=== PATIENT | female | born 1985 | race Caucasian/White ===

== ENCOUNTER 2017-03-29 18:14 | Emergency (ER) | payer BC ==
[~2017-03-29] VITALS: Ht 162.6 cm; Wt 76.4 kg
[2017-03-29] MEDS ORDERED: TRAM50TA2 PO (18:32)
[2017-03-29] MEDS ORDERED: IBUP-1542 PO (18:32)
[2017-03-29] MEDS ORDERED: CETI10CA PO (18:32)
[2017-03-29] MEDS ORDERED: AMOX500C2 PO (18:32)
[2017-03-29 18:35] VITALS: Ht 162.6 cm; Wt 76.4 kg
[2017-03-29 18:39] VITALS: BP 119/68; PULSE 90; RESP 18; TEMP 98
--- NOTE | 2017-03-29 18:46 | ERD ---
ER Documentation Chief Complaint Chief Complaint Jaw pain for 1 month HPI 31-year-old female sent to emergency department for complaints of right jaw pain for 1 month now, worse after eating, throbbing pain, 6/10 scale, patient also is complaining of right ear pain throbbing pain 4/10 scale, not better or worse with anything. Patient did not take any medications to help with symptoms. Patient denies any ear discharge. Patient denies any problems with hearing. Denies any trauma. ROS All systems reviewed and are negative except as per history of present illness. Medications Home Meds Active Scripts Cetirizine Hcl* (Zyrtec*) 10 Mg Capsule, 10 MG PO DAILY, #30 TAB.CHEW Prov:LANNY CERDA NP 03/29/17 Amoxicillin* (Amoxicillin*) 500 Mg Cap, 500 MG PO TID for 10 Days, CAP Prov:LANNY CERDA NP 03/29/17 Tramadol HCl (Tramadol HCl) 50 Mg Tablet, 50 MG PO Q6 for SEVERE PAIN LEVEL 7-10 , #20 TAB Prov:LANNY CERDA NP 03/29/17 Ibuprofen* (Motrin*) 600 Mg Tab, 600 MG PO Q6H Y for PAIN AND OR ELEVATED TEMP, #30 TAB Prov:LANNY CERDA NP 03/29/17 Allergies Allergies: Coded Allergies: No Known Drug Allergy (Verified Allergy, Unknown, 04/16/09) PMhx/Soc Medical and Surgical Hx: pt denies Medical Hx History of Surgery: Yes (C SECTION X'S 2) Anesthesia Reaction: No Hx Alcohol Use: No Hx Substance Use: No Hx Tobacco Use: No Smoking Status: Never smoker FmHx Family History: No coronary disease, No diabetes, No other Physical Exam Physical Exam GENERAL: The patient is well developed and appropriate for usual state of health, in no apparent distress. HEENT: Atraumatic. Ears: Right ear tympanic membrane noted to be erythematous and bulging. Normal left tympanic membrane, no erythema or bulging. No ear canal swelling. No ear discharge. Nose: normal nasal turbinates, no erythema or swelling. Normal nasal discharge. Throat: oropharynx clear. No tonsillar swelling or tonsillar exudates. No lymphadenopathy. CHEST: Clear to auscultation bilaterally. There are no rales, wheezes or rhonchi. Tenderness on palpation of the right temporomandibular joint. HEART: Regular rate and rhythm. No murmurs, clicks, rubs or gallops. No S3 or S4. ABDOMEN: Soft, nontender and nondistended. Good bowel sounds. No rebound or guarding. No gross peritonitis. No gross organomegaly or masses. No Howe sign or McBurney point tenderness. BACK: No midline or flank tenderness. EXTREMITIES: Equal pulses bilaterally. There is no peripheral clubbing, cyanosis or edema. No focal swelling or erythema. Full range of motion. Grossly neurovascularly intact. NEURO: Alert and oriented. Cranial nerves 2-12 intact. Motor strength in all 4 extremities with 5/5 strength. Sensation grossly intact. Normal speech and gait. SKIN: There is no apparent rash or petechia. The skin is warm and dry. HEMATOLOGIC AND LYMPHATIC: There is no evidence of excessive bruising or lymphedema. No gross cervical, axillary, or inguinal lymphadenopathy. Procedures/MDM Medical decision making: Patient symptoms is likely consistent with right otitis media. No symptoms of otitis externa or mastoiditis. No foreign body in the ear. No TM perforation. No cerumen impaction. Also TMJ syndrome. No symptoms of any septic arthritis, abscesses. No symptoms of any cellulitis. Disposition: Home. Stable. Prescription was given for amoxicillin, Zyrtec, ibuprofen, Tramadol is advised to follow-up with primary care doctor in 2-3 days for reevaluation of symptoms. Patient is advised to avoid using Q-tips to clean the ear. Patient is advised to return to emergency department for any worsening symptoms. Disclaimer: Inadvertent spelling and grammatical errors are likely due to EHR/ dictation software use and do not reflect on the overall quality of patient care. Also, please note that the electronic time recorded on this note does not necessarily reflect the actual time of the patient encounter. Departure Diagnosis: Primary Impression: TMJ syndrome Additional Impression: Otitis media Otitis media type: serous Chronicity: acute Laterality: right Recurrence : not specified as recurrent Qualified Code: H65.01 - Right acute serous otitis media, recurrence not specified Condition: Stable Patient Instructions: Helping Your Temporomandibular Joint (TMJ) Heal LANNY CERDA NP Mar 29, 2017 18:46
== END 2017-03-29 18:55 | disposition home or self-care (01) ==
LOC: FTE 18:14
DX: M26.621 Arthralgia of right temporomandibular joint (principal); H65.01 Acute serous otitis media, right ear
CPT/HCPCS: 99284